=== PATIENT | male | born 1955 | race Hispanic/Latino ===

== ENCOUNTER 2022-12-09 17:04 | Emergency (ER) | payer OTHER ==
[2022-12-09] MEDS ORDERED: Acetaminophen 500 MG TAB ONE (17:34)
[2022-12-09] MEDS ORDERED: Ondansetron PF 4 MG/2 ML Vial ONE (17:34)
[2022-12-09 17:52] LABS: #Eosinphils 0.1 thou/uL (0.0-0.7); #Monocytes 0.5 thou/uL (0.11-0.59); #Neutrophils 5.3 thou/uL (1.40-6.50); %Basophils 0.6 % (0.0-1.0); %Eosinophils 1.8 % (0.0-10.0); %Lymphocytes 16.6 % (21.0-51.0); %Monocytes 6.6 % (0.0-10.0); %Neutrophils 74.1 % (42.0-75.0); Hematocrit 40.8 % (42.0-52.0); Hemoglobin 14.3 g/dL (14.0-18.0); Mean Corpuscular Hemoglobin 32.4 pg (27.0-31.0); Mean Corpuscular Volume 92.5 fl (78.0-98.0); Mean Platelet Volume 10.9 fL (7.4-10.4); Platelet Count 145 10x3/uL (130-400); RBC Distribution Width 13.3 % (11.5-14.5); Red Blood Cell (RBC) Count 4.41 mill/uL (4.70-6.10); White Blood Cell (WBC) Count 7.2 10x3/uL (4.8-10.8)
[2022-12-09 18:13] LABS: Troponin I Less than 0.010 ng/mL (< 0.028)
[2022-12-09 18:31] LABS: Albumin 3.9 g/dL (3.4-4.8)
[2022-12-09 18:32] LABS: Chloride 108 mmol/L (98-107); Potassium 4.1 mmol/L (3.5-5.1); Sodium 137 mmol/L (136-145)
[2022-12-09 18:33] LABS: Calcium 8.7 mg/dL (7.8-10.44); Glucose 116 mg/dL (80-115)
[2022-12-09 18:34] LABS: Globulin 3.6 g/dL (2.4-3.5); Protein, Total 7.5 g/dL (5.8-8.1)
[2022-12-09 18:35] LABS: Anion Gap 10 mmol/L (10-20); Bilirubin, Total 1.1 mg/dL (0.2-1.2); Carbon Dioxide 23 mmol/L (23-31)
[2022-12-09 18:36] LABS: Alkaline Phosphatase 50 U/L (40-110)
[2022-12-09 18:37] LABS: BUN (Urea Nitrogen) 14 mg/dL (8.4-25.7); Calc. Creatinine Clearance 0 mL/min (70-130); Estimated GFR 70
[2022-12-09 18:38] LABS: AST (SGOT) 23 U/L (5-34)
[2022-12-09 18:39] LABS: ALT (SGPT) 25 U/L (8-55); Magnesium 1.7 mg/dL (1.6-2.6)
== END 2022-12-09 19:22 | disposition home or self-care (01) ==
LOC: ERS 17:04
DX: T67.5XXA Heat exhaustion, unspecified, initial encounter (principal); R42 Dizziness and giddiness; I10 Essential (primary) hypertension; Z87.891 Personal history of nicotine dependence
CPT/HCPCS: 36415; 70450; 71045; 80053; 83735; 84484; 85025; 93005; 96361; 96374; J2405